=== PATIENT | female | born 1985 | race Asian ===

== ENCOUNTER 2018-12-15 08:53 | Outpatient (CLI) | payer BC, OTHER | END 2018-12-15 19:30 | disposition home or self-care (01) | LOC: US 08:53 | DX: R60.0 Localized edema (principal) ==

== ENCOUNTER 2018-12-31 08:22 | Outpatient (CLI) | payer BC, OTHER | END 2018-12-31 20:46 | disposition home or self-care (01) | LOC: CT 08:22 | DX: I74.3 Embolism and thrombosis of arteries of the lower extremities (principal); R60.0 Localized edema ==